=== PATIENT | male | born 1955 | race Caucasian/White ===

== ENCOUNTER 2020-11-25 17:00 | Emergency (ER) | payer MEDICARE | END 2020-11-25 19:17 | disposition home or self-care (01) | LOC: ER1 17:00 | DX: R10.32 Left lower quadrant pain (principal); G89.29 Other chronic pain; M79.605 Pain in left leg; M79.604 Pain in right leg; I10 Essential (primary) hypertension; Z88.5 Allergy status to narcotic agent; Z87.39 Personal history of other diseases of the musculoskeletal system and connective tissue | CPT/HCPCS: 99283 ==